=== PATIENT | male | born 1995 | race Caucasian/White ===

== ENCOUNTER 2016-09-14 23:48 | Emergency (ER) | payer OTHER ==
[2016-09-15] MEDS ORDERED: Marcaine 0.5%/Epinephrine 10 ML IJ ONE (00:02)
[2016-09-15] MEDS ORDERED: AMOXIL 500 MG PO ONE (00:02)
[2016-09-15] MEDS ORDERED: XYLOCAINE VISCOUS 2% 20 ML CUP PO ONE (00:02)
[2016-09-15] MEDS ORDERED: NORCO 5/325 MG PO ONE (00:03)
[2016-09-15] MEDS ORDERED: XYLOCAINE HCl Viscous ONE (00:03)
[2016-09-15] MEDS ORDERED: Marcaine 0.5%/Epinephrine 10 ML ONE (00:05)
[2016-09-15] MEDS ORDERED: NORCO 5/325 MG ONE (00:12)
[2016-09-15] MEDS ORDERED: AMOXIL 500 MG ONE (00:12)
--- NOTE | 2016-09-15 00:15 | ERPHSYRPT ---
- History of Present Illness Time Seen by Provider: 09/14/16 23:55 Source: patient, family Patient Subjective Stated Complaint: pt says he has a tooth that is decayed really bad and he is supposed to get it pulled Monday. tonight it began hurting so bad he that he has come to ER to get relief until tomorrow Triage Nursing Assessment: rian Duran, resp unlab Physician History: CC: toothache Hx: 21 y/o patient of Dr Callejas with right lower toothache. Rather severe. Hurts. No fever or chills. Plans to see dentist tomorrow. Used tempoary filling without relief. Timing/Duration: gradual onset Severity: severe Allergies/Adverse Reactions: No Known Drug Allergies Allergy (Verified 09/15/16 00:31) Home Medications: No Home Meds 1 ea MC UD 09/15/16 [History] Hx Tetanus, Diphtheria Vaccination/Date Given: Yes (UNKNOWN) Hx Influenza Vaccination/Date Given: No Hx Pneumococcal Vaccination/Date Given: No Immunizations Up to Date: Yes - Review of Systems Constitutional: No Symptoms, No Fever Ears, Nose, & Throat: Mouth Pain Respiratory: No Dyspnea Skin: No Rash - Past Medical History Pertinent Past Medical History: No - Past Surgical History Past Surgical History: Yes Other Surgical History: COLONOSOPY - Social History Smoking Status: Former smoker How long have you smoked: 1 Exposure to second hand smoke: No Drug Use: none Patient Lives Alone: No - Nursing Vital Signs Nursing Vital Signs: Initial Vital Signs Temperature 99.9 F Temperature Source Oral Pulse Rate 64 Respiratory Rate 18 Blood Pressure [Right Arm] 136/86 Pain Intensity 20 - Physical Exam General Appearance: alert Eye Exam: bilateral eye: PERRL, EOMI Throat Exam: normal Neck Exam: normal inspection, supple Cardiovascular/Respiratory Exam: normal breath sounds, regular rate/rhythm Neurologic Exam: alert, oriented x 3, cooperative Skin Exam: warm, dry, No rash Oxygen Delivery: Room Air Comments: right lower 2nd molar tender. Mild surrounding swelling. No trismus. - Course Nursing assessment & vital signs reviewed: Yes Ordered Tests: Medication Summary Discontinued Medications Generic Name Dose Route Start Last Admin Trade Name Freq PRN Reason Stop Dose Admin Hydrocodone Bitart/Acetaminophen 2 tab 09/15/16 00:03 09/15/16 00:20 [place] 5/325 Mg PO 09/15/16 00:04 2 tab SENT HOME W/ PATIENT ONE Administration Hydrocodone Bitart/Acetaminophen Confirm 09/15/16 00:12 [place] 5/325 Mg Administered 09/15/16 00:13 Dose 2 tab .ROUTE .STK-MED ONE Amoxicillin 500 mg 09/15/16 00:02 09/15/16 00:20 Amoxil 500 Mg PO 09/15/16 00:03 500 mg STAT ONE Administration Amoxicillin Confirm 09/15/16 00:12 Amoxil 500 Mg Administered 09/15/16 00:13 Dose 500 mg .ROUTE .STK-MED ONE Bupivacaine HCl/Epinephrine Bitart 5 ml 09/15/16 00:02 09/15/16 00:08 [place] 0.5%/Epinephrine 10 Ml IJ 09/15/16 00:03 5 ml STAT ONE Administration Bupivacaine HCl/Epinephrine Bitart Confirm 09/15/16 00:05 [place] 0.5%/Epinephrine 10 Ml Administered 09/15/16 00:06 Dose 10 ml .ROUTE .STK-MED ONE Lidocaine HCl 20 ml 09/15/16 00:02 09/15/16 00:09 Xylocaine Viscous 2% 20 Ml Cup PO 09/15/16 00:03 20 ml STAT ONE Administration Lidocaine HCl Confirm 09/15/16 00:03 Xylocaine Hcl Viscous * Administered 09/15/16 00:04 Dose 2 ml .ROUTE .STK-MED ONE - Progress Progress Note: 09/15/16 00:15 Pt chose dental block as he plans dentist in AM. 09/15/16 00:32 3.5ml marcaine with epi used for right 2nd molar periostial block. Results good with pain from 20 to 6. He plans to see dentist tomorrow. Will release with instructions. Counseled pt/family regarding: diagnosis, need for follow-up - Departure Time of Disposition: 00:33 Departure Disposition: Home Clinical Impression: Toothache Condition: Stable Critical Care Time: No Referrals: SHERICE VELASQUEZ [Primary Care Provider] - EARLE CALLEJAS DDS [NON-STAFF PHY W/O PRIVILEGES] - Instructions: Dental Pain, Tooth Decay Additional Instructions: Use hydrocodone every 4-6 hours if needed for pain- no driving or operating machinery. Rx amoxil. See dentist tomorrow. Prescriptions: Amoxicillin [Amoxil] 1 cap PO TID #21 capsule Hydrocodone Bit/Acetaminophen [[place] 5-325 Tablet] 1 each PO Q4-6HPRN PRN #10 tablet PRN Reason: Pain
[2016-09-15 00:42] VITALS: BP 140/65; PULSE 65; O2SAT 98
== END 2016-09-15 00:42 | disposition home or self-care (01) ==
LOC: ED 23:48
DX: K08.89 Other specified disorders of teeth and supporting structures (principal)
CPT/HCPCS: 99283; 99284; A9270-GY